=== PATIENT | female | born 1950 | race Caucasian/White ===

== ENCOUNTER → 2018-04-17 | Outpatient (CLI) | payer OTHER ==
[~2018-04-17] MED LIST: AMOX-559 PO; CEPH-13 PO; CIPR-344 PO; GUAI120L3 PO; HYDEL PO; IBU200 PO; LEVO-85 PO; MULT-1 PO; OMEP-218 PO; ONDA4TAB PO; PER PO; PRED20TA6 PO; Return to Work; SULF-198 PO; TRAM-420 PO; Work Restrictions
== END ==
LOC: LAB 11:15
PROVIDERS: ATTEND Nurse Practitioner Family
DX: R30.0 Dysuria (principal); R82.90 Unspecified abnormal findings in urine; B96.20 Unspecified Escherichia coli [E. coli] as the cause of diseases classified elsewhere
CPT/HCPCS: 81001; 87077; 87088; 87186

== ENCOUNTER → 2018-05-22 | Outpatient (CLI) | payer OTHER | LOC: LAB 05:42 | PROVIDERS: ATTEND Nurse Practitioner Family | DX: R30.9 Painful micturition, unspecified (principal); R82.90 Unspecified abnormal findings in urine | CPT/HCPCS: 81001; 87077; 87088; 87186 ==